=== PATIENT | female | born 1930 | race Caucasian/White ===

== ENCOUNTER 2020-10-17 08:38 | Day surgery (SDC) | payer MEDICARE ==
[2020-10-17 09:10] VITALS: BP 153/81; TEMP 99; BMI 22.4
[2020-10-17] MEDS ORDERED: Sodium Bicarbonate 2.5 MEQ/5 ML VIAL ONE (09:35)
[2020-10-17 11:49] LABS: BF Color Colorless; Body Fluid Source Paracentesis Fluid; Clarity Hazy (Clear); Tube # EDTA
== END 2020-10-17 10:05 | disposition home or self-care (01) ==
LOC: CSHULT 08:38
PROVIDERS: ATTEND Internal Medicine Hematology & Oncology
DX: C25.1 Malignant neoplasm of body of pancreas (principal); R18.8 Other ascites
CPT/HCPCS: 49083; 88112; 89051